=== PATIENT | male | born 1970 | race Caucasian/White ===

== ENCOUNTER 2016-11-30 17:40 | Emergency (ER) | payer OTHER ==
[~2016-11-30] VITALS: Ht 182.9 cm; Wt 75.0 kg
[2016-11-30 17:52] VITALS: BP 111/74; PULSE 80; RESP 18; O2SAT 100
--- NOTE | 2016-11-30 20:12 | DRSVH ---
PROCEDURE: X-RAY RIGHT SHOULDER, MINIMUM TWO VIEWS ([id number]) INDICATIONS: fall TECHNIQUE: 3 views of the shoulder were acquired. COMPARISON: None. FINDINGS: Bones: No fractures or dislocations. No suspicious bony lesions. Visualized ribs appear intact. T here is moderate acromioclavicular joint degeneration. Soft tissues: No suspicious soft tissue calcifications. IMPRESSION: No fracture or dislocation. Dictated by: Shon Guan M.D. on 11/30/2016 at 20:10 Approved by: Shon Guan M.D. on 11/30/2016 at 20:11
--- NOTE | 2016-11-30 20:12 | DRSVH ---
PROCEDURE: X-RAY RIGHT RIBS INCLUDEING PA CHEST, MINUMUM THREE VIEWS ([id number]) INDICATIONS: fall TECHNIQUE: 2 views of the right ribs were acquired, along with a single view chest. COMPARISON: None. FINDINGS: Surgical changes and devices: None. Bones and chest wall: Possible nondisplaced right ninth rib fracture. No suspicious bony lesions. O verlying soft tissues appear unremarkable. Lungs and pleura: No pleural effusions or pneumothorax. Lungs appear clear. Mediastinum: Mediastinal contours appear normal. Heart size is normal. IMPRESSION: Possible nondisplaced right ninth rib fracture. Dictated by: Shon Guan M.D. on 11/30/2016 at 20:07 Approved by: Shon Guan M.D. on 11/30/2016 at 20:10
--- NOTE | 2016-11-30 20:13 | DRSVH ---
PROCEDURE: X-RAY RIGHT FOREARM, TWO VIEWS ([id number]) INDICATIONS: fall TECHNIQUE: 2 views of the forearm were acquired. COMPARISON: None. FINDINGS: Bones: No fractures or dislocations. No suspicious bony lesions. Soft tissues: No suspicious soft tissue calcifications or masses. IMPRESSION: No fracture or dislocation. Dictated by: Shon Guan M.D. on 11/30/2016 at 20:11 Approved by: Shon Guan M.D. on 11/30/2016 at 20:11
--- NOTE | 2016-11-30 20:14 | DRSVH ---
PROCEDURE: X-RAY RIGHT ELBOW COMPLETE, MINIMUM THREE VIEWS ([id number]) INDICATIONS: fall TECHNIQUE: 3 views of the elbow were acquired. COMPARISON: None. FINDINGS: Bones: No fractures or dislocations. No suspicious bony lesions. Soft tissues: No elbow joint effusion. No suspicious soft tissue calcifications. IMPRESSION: No fracture or dislocation. Dictated by: Shon Guan M.D. on 11/30/2016 at 20:11 Approved by: Shon Guan M.D. on 11/30/2016 at 20:12
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
[2016-11-30] MEDS ORDERED: _HYDROcodone/APAP 5-325 mg Tablet PO PRN (21:05)
[2016-11-30] MEDS ORDERED: HYDR-4003 PO (21:09)
[2016-11-30] MEDS ORDERED: HYDROcodone-APAP 5-325 mg Tablet PO ONE (22:40)
[2016-11-30 23:59] VITALS: PULSE 76; RESP 16
== END 2016-11-30 23:59 | disposition home or self-care (01) ==
LOC: SED 17:40
DX: S22.31XA Fracture of one rib, right side, initial encounter for closed fracture (principal); S46.011A Strain of muscle(s) and tendon(s) of the rotator cuff of right shoulder, initial encounter; M25.521 Pain in right elbow; M79.631 Pain in right forearm; V13.4XXA Pedal cycle driver injured in collision with car, pick-up truck or van in traffic accident, initial encounter; Y93.55 Activity, bike riding; Y99.8 Other external cause status; Y92.410 Unspecified street and highway as the place of occurrence of the external cause; F10.21 Alcohol dependence, in remission
CPT/HCPCS: 71101; 73030; 73080; 73090; 96372; 99284; J1885

== ENCOUNTER 2016-12-05 09:20 | Emergency (ER) | payer OTHER ==
[~2016-12-05] VITALS: Ht 180.3 cm; Wt 79.1 kg
[~2016-12-05 09:20] MED LIST: HYDR-4003 PO
[2016-12-05 09:23] VITALS: BP 121/80; PULSE 85; RESP 16; O2SAT 99
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
[2016-12-05] MEDS ORDERED: HYDR-4003 PO (09:51)
[2016-12-05] MEDS ORDERED: IBUP800T28 PO (09:51)
[2016-12-05 10:51] VITALS: BP 113/79; PULSE 63; O2SAT 99
== END 2016-12-05 10:52 | disposition home or self-care (01) ==
LOC: SED 09:20
DX: M25.511 Pain in right shoulder (principal); R07.81 Pleurodynia; V19.9XXD Pedal cyclist (driver) (passenger) injured in unspecified traffic accident, subsequent encounter; Y93.55 Activity, bike riding; Y92.9 Unspecified place or not applicable; Y99.8 Other external cause status
CPT/HCPCS: 96372; 99283; G0463; J1885